=== PATIENT | female | born 1965 | race Caucasian/White ===

== ENCOUNTER → 2016-08-28 | Outpatient (CLI) | payer BC ==
[2016-08-28 08:19] LABS: EKG EKG PERFORMED
[2016-08-28 09:27] LABS: Basophils # (A) 0.1 k/uL (0-0.2); Basophils % (A) 1 %; CH 31.1; CHCM 33.1; Eosinophils # (A) 0.3 k/uL (0-0.7); Eosinophils % (A) 4 %; HCT 43.3 % (34.0-46.0); HDW 2.38; HGB 13.8 gm/dL (11.4-16.0); Luc # (Auto) 0.15; Luc % (Auto) 2; Lymphocytes # (A) 1.3 k/uL (1.0-4.8); Lymphocytes % (A) 21 %; MCHC 31.8 g/dL (31.0-37.0); MCV 94.2 fL (80.0-100.0); Mean Platelet Volume 7.2; Monocytes # (A) 0.4 k/uL (0-1.0); Monocytes % (A) 6 %; Neutrophils # (A) 4.1 k/uL (1.3-7.7); Neutrophils % (A) 66 %; RDW 12.6 % (11.5-15.5); WBC 6.2 k/uL (3.8-10.6); WBC (Perox) 6.35
[2016-08-28 09:54] LABS: Anion Gap 10 mmol/L; Carbon Dioxide 31 mmol/L (22-30); Chloride 100 mmol/L (98-107); Potassium 4.5 mmol/L (3.5-5.1); Sodium 141 mmol/L (137-145)
== END | disposition home or self-care (01) ==
LOC: LABPAT 08:09
PROVIDERS: ATTEND Orthopaedic Surgery
DX: Z01.810 Encounter for preprocedural cardiovascular examination (principal); Z01.812 Encounter for preprocedural laboratory examination
CPT/HCPCS: 80051; 85025; 93005

== ENCOUNTER 2016-09-05 06:08 | Day surgery (SDC) | payer BC ==
[2016-09-03 15:03] VITALS: BMI 22.8
--- NOTE | 2016-09-04 18:49 | HP ---
DATE OF ADMISSION: 09/05/2016 April Wilson is a 51-year-old patient seen with progressive right shoulder pain. After having treatment options discussed, she elected to proceed with right shoulder arthroscopy. Consent was obtained. Her past medical history is noncontributory. Past surgical history is hysterectomy, laparoscopy. Daily medications: Baclofen, Mobic. ALLERGIES: NONE. Social history is noncontributory. She denies current tobacco use. PHYSICAL EVALUATION OF THE RIGHT SHOULDER: Flexion is 90 degrees, abduction 70 degrees. External rotation is 15 degrees with some pain and weakness. There is tenderness along the anterolateral acromion and rotator cuff insertion. Impingement is positive at 70 degrees. Distal neurovascular exam is intact. Right shoulder radiographs revealed a type II anterior acromion, evidence for acromioclavicular joint osteoarthritis and cystic changes of the tuberosity. An MRI of the right shoulder revealed a partial rotator cuff tear. IMPRESSION: Right shoulder impingement with rotator cuff tear. PLAN: Right shoulder arthroscopy with subacromial decompression, probable arthroscopic rotator cuff repair and debridement.
[~2016-09-05 06:08] MED LIST: DEXAMETHASONE SOD PHOSPHATE 10 MG/ML 1 ML VIAL IV ONE; HYDROmorphone 1 MG/ML 1 ML SYRINGE IVP PRN; MIDAZOLAM 2 MG/2 ML VIAL IV PRN; ONDANSETRON 4 MG/2 ML VIAL IVP ONE; ceFAZolin 1,000 MG in DEXTROSE/WATER 1 50ML.BAG IV ONE
[2016-09-05 06:58] VITALS: RESP 16
[2016-09-05] MEDS: LACTATED RINGERS 1,000 ML IV SCH ×2 (07:04→10:34)
[2016-09-05] MEDS ORDERED: LIDOCAINE 2%-EPI 1:100,000 20 ML VIAL ONE (08:04)
[2016-09-05] MEDS ORDERED: MIDAZOLAM 2 MG/2 ML VIAL ONE (08:04)
[2016-09-05] MEDS ORDERED: LIDOCAINE 1% INJ 10MG/ML (20 ML MDV) ONE (08:04)
[2016-09-05] MEDS ORDERED: fentaNYL (PF) 50 MCG/ML 2 ML AMP ONE (08:04)
[2016-09-05] MEDS ORDERED: ROPIVACAINE 5 MG/ML 30 ML VIAL ONE (08:04)
[2016-09-05] MEDS ORDERED: PROPOFOL 10 MG/ML 20 ML VIAL IV ONE (08:04)
[2016-09-05 09:57] VITALS: TEMP 97
--- NOTE | 2016-09-05 09:57 | P.OP ---
Date of Procedure: 09/05/16 Preoperative Diagnosis: Right shoulder impingement Postoperative Diagnosis: 1. Right shoulder rotator cuff tear 2. Right shoulder impingement 3. 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 Right shoulder partial long head biceps tendon tear 6. Right shoulder arthroscopic debridement labral tear Procedure(s) Performed: 1. Right shoulder arthroscopic rotator cuff repair 2. Right shoulder arthroscopic subacromial decompression 3. Right shoulder arthroscopic chondroplasty humeral head and glenoid fossa 4. Right shoulder arthroscopic biceps tenotomy 5. Right shoulder arthroscopic debridement labral tear Implants: 4-valeris peek anchors Anesthesia: GETA, regional (Interscalene block) Surgeon: Varghese Rodriguez Sleep Technologist #1: Nahum Jones Estimated Blood Loss (ml): 10 Pathology: none sent Condition: stable Disposition: PACU Indications for Procedure: 51-year-old patient seen with progressive right shoulder pain. After having treatment options discussed, she elected to proceed with right shoulder arthroscopy. Operative Findings: see description of procedure Description of Procedure: Patient underwent a shoulder block by department of anesthesia. The patient was then taken to the operative suite. The patient underwent a general anesthetic by the department of anesthesia. The patient was placed into a lateral position and secured. There was appropriate padding of the bony prominence. Right shoulder was then prepped and draped in normal sterile orthopedic fashion. We placed the extremity in 10 pounds of longitudinal traction. A posterior incision was now made for a posterior working portal site. The trocar and cannula were inserted into the glenohumeral joint. Arthroscopy was initiated. Spinal needle was now inserted anteriorly, to ascertain the anterior working portal site. An incision was now made in that area, a trocar was inserted followed by a probe. There were grade 3 chondral malacia changes of the humeral head with large osteochondral tears present. There were grade 2-3 chondromalacia changes of the glenoid fossa with osteochondral tears present. There was superficial tearing of the superior and anterior labrum. There was partial tearing long head biceps tendon with hyperemia. No loose bodies were identified. The posterior and inferior labrum were stable. I performed an arthroscopic biceps tenotomy. I debrided the labral tear down to stable tissue. I performed a chondroplasty of the humeral head and glenoid fossa getting down to stable osteochondral tissue. The residual osteochondral tissue was probed and found to be stable. We again had a fairly large area of grade 3 chondromalacia of the humeral head and a fairly large area of grade 2-3 chondral malacia changes of the glenoid. Instruments were now removed from glenohumeral joint. Utilizing the posterior working portal site, the trocar and cannula were inserted into the subacromial space. Arthroscopy initiated. I made an incision 2 fingerbreadths lateral to the acromion. I introduced my trocar followed by my ArthroCare ablator. I now began ablating thick subacromial bursal tissue, which exposed the undersurface of the anterior acromion. This was diminished subacromial space. There was a very prominent anterior acromion. A motorized bur was introduced and a subacromial decompression was performed. I also excised some osteophytes off the inferior aspect of the distal clavicle. The AC joint was visualized and noted to be mildly arthritic. I did not think enough toward a Kim procedure. I turned my attention to the rotator cuff. There was about a 2 cm large area of partial tearing posterior aspects supraspinatus tendon. After probing this were obvious perforation through the tendon. I debrided that and noted complete perforation and therefore debrided the area getting down to stable tendon tissue. We now had a defect of about 2 cm but freely mobile over the footprint. The peripheral tissue although thin was stable. I abraded the footprint with a motorized bur. I created an foot setter portal site off the lateral acromion. I introduced 2 medial row anchors with appropriate sutures. I passed all 8 limbs of suture through good bites of rotator cuff tendon. I crisscrossed the sutures and introduced 2 lateral anchors compressing the tendon along the footprint very nicely. The repair was probed and found to be stable. The residual suture limbs were clipped. I injected 1 mL of Allogen into the intra-articular glenohumeral joint area. Instruments now removed from the portal sites. All portal sites were approximated with nylon sutures. Sterile dressings were applied followed by a shoulder immobilizer. Ottoniel AGUIAR assisted with the procedure. The patient was awakened, transferred to a bed, and taken to recovery in stable condition.
[2016-09-05 11:14] VITALS: BP 112/66; PULSE 58
== END 2016-09-05 11:59 | disposition home or self-care (01) ==
LOC: OR 06:08
PROVIDERS: ATTEND Orthopaedic Surgery
DX: M75.101 Unspecified rotator cuff tear or rupture of right shoulder, not specified as traumatic (principal); M75.41 Impingement syndrome of right shoulder; M94.211 Chondromalacia, right shoulder; S46.111A Strain of muscle, fascia and tendon of long head of biceps, right arm, initial encounter; X58.XXXA Exposure to other specified factors, initial encounter; S43.401A Unspecified sprain of right shoulder joint, initial encounter; Z87.891 Personal history of nicotine dependence; Z79.899 Other long term (current) drug therapy
CPT/HCPCS: 64415; 29826; 29827; C1713 ×2; C1765; J2250; J1100; J2405; J2001; J3010; J0690; J2795; J2704

== ENCOUNTER 2017-02-18 07:40 | Day surgery (SDC) | payer BC ==
[2017-02-12 10:39] VITALS: BMI 23.1
--- NOTE | 2017-02-17 14:53 | HP ---
Surgery is scheduled for 02/18/2017. April Wilson is a 51-year-old patient see with right shoulder adhesions after having undergone arthroscopy. We discussed options. She elected to proceed with manipulation under anesthesia, right shoulder with steroid injection. Consent was obtained. PAST MEDICAL HISTORY: Osteoarthritis. PAST SURGICAL HISTORY: Hysterectomy, laparoscopy, ileostomy, shoulder arthroscopy. DAILY MEDICATIONS: Baclofen, MiraLAX, Mobic. ALLERGIES: None. SOCIAL HISTORY: Patient denies current tobacco use. PHYSICAL EVALUATION OF THE RIGHT SHOULDER: Her previous arthroscopic portal sites are well healed. There are no hyperemia, erythema or evidence for infective process. Flexion 95 degrees, abduction 90 degrees, external rotation is 25 degrees with some weakness. Distal neurovascular exam is intact. Radiographs of the right shoulder revealed a stable conversion to a flat anterior acromion. IMPRESSION: 1. Right shoulder adhesive capsulitis. 2. History of right shoulder arthroscopy. PLAN: Manipulation under anesthesia, right shoulder with steroid injection. CHAITANYA
[~2017-02-18 07:40] MED LIST changes: +LACTATED RINGERS 1,000 ML IV SCH; -MIDAZOLAM 2 MG/2 ML VIAL IV PRN; -ceFAZolin 1,000 MG in DEXTROSE/WATER 1 50ML.BAG IV ONE; +ceFAZolin 2 GM in SODIUM CHLORIDE 0.9% 100 ML IVPB ONE
[2017-02-18] MEDS ORDERED: LIDOCAINE 1% 20 ML VIAL (10MG/ML) FOR IV START INTRADERMA ONE (08:00)
[2017-02-18] MEDS ORDERED: MIDAZOLAM 2 MG/2 ML VIAL IVP ONE (09:20)
[2017-02-18] MEDS ORDERED: KETOROLAC 30 MG/ML 1 ML VIAL ONE (09:26)
[2017-02-18] MEDS ORDERED: MIDAZOLAM 2 MG/2 ML VIAL ONE (09:26)
[2017-02-18] MEDS ORDERED: fentaNYL (PF) 50 MCG/ML 2 ML AMP ONE (09:26)
[2017-02-18] MEDS ORDERED: PROPOFOL 10 MG/ML 20 ML VIAL IV ONE (09:26)
[2017-02-18] MEDS ORDERED: LACTATED RINGERS 1,000 ML IV ONE (09:43)
--- NOTE | 2017-02-18 09:46 | P.OP ---
Date of Procedure: 02/18/17 Preoperative Diagnosis: Right shoulder adhesive capsulitis Postoperative Diagnosis: Right shoulder adhesive capsulitis Procedure(s) Performed: Manipulation under anesthesia right shoulder with steroid injection Implants: Anesthesia: MAC Surgeon: Varghese Rodriguez Estimated Blood Loss (ml): 0 Pathology: none sent Condition: stable Disposition: PACU Indications for Procedure: 51-year-old patient seen with persistent right shoulder adhesive capsulitis with history of shoulder arthroscopy. After we discussed treatment options she elected to proceed with manipulation under anesthesia right shoulder with steroid injection. Operative Findings: see description of procedure Description of Procedure: Patient was taken to a monitored area and underwent anesthesia by the department of anesthesia. When sufficient anesthesia was noted I performed a manipulation right shoulder achieving 150 of flexion and 140 of abduction. I was able to get about 30 of external rotation. I felt that this was as much as I was able to achieve. I injected a solution of Depo-Medrol and quarter percent plain Marcaine intra-articular under sterile technique. The patient was awakened having entire procedure well. Patient will proceed with physical therapy on an outpatient basis as previously instructed.
[2017-02-18 09:55] VITALS: TEMP 98
[2017-02-18] MEDS ORDERED: HYDROmorphone 1 MG/ML 1 ML SYRINGE IVP ONE ×2 (10:05→10:10)
[2017-02-18 10:57] VITALS: RESP 16
[2017-02-18 11:47] VITALS: BP 116/73; PULSE 55
== END 2017-02-18 12:11 | disposition home or self-care (01) ==
LOC: OR 07:40
PROVIDERS: ATTEND Orthopaedic Surgery
DX: M75.01 Adhesive capsulitis of right shoulder (principal); M19.90 Unspecified osteoarthritis, unspecified site; Z79.1 Long term (current) use of non-steroidal anti-inflammatories (NSAID); Z79.899 Other long term (current) drug therapy
CPT/HCPCS: 20610; 23700; J2250; J1100; J2405; J3010; J1885; J1170; J2704

== ENCOUNTER 2018-08-10 21:07 | Emergency (ER) | payer BC ==
[2018-08-10 21:15] VITALS: TEMP 97.9
[2018-08-10] MEDS ORDERED: PROPARACAINE 0.5% OPHTH DROPS 15 ML BTL RIGHT EYE STA (21:21)
--- NOTE | 2018-08-10 21:26 | ED ---
General Adult HPI - General Chief complaint: Eye Problems Stated complaint: FB eye Time Seen by Provider: 08/10/18 21:17 Source: patient, RN notes reviewed, old records reviewed Mode of arrival: ambulatory Limitations: no limitations - History of Present Illness Initial comments: 53-year-old female patient with pertinent past history presents to ED with foreign body sensation in right eye. Patient states that she was sitting watching TV, she felt as if something is in her eye. Patient still has that feeling. Patient states that she was sitting incontinence occurred, denies anything could have fallen in eye. Patient States Her Vision Is at Baseline. Patient Denies Any Other Complaints. Systemic: Pt denies fatigue, myalgia, fever/chills, rash. Pt denies weakness, night sweats, weight loss. Neuro: Pt denies headache, visual disturbances, syncope or pre-syncope. HEENT: Pt denies otalgia, rhinorrhea, pharyngitis or notable lymphadenopathy. Cardiopulmonary: Pt denies chest pain, SOB, heart palpitations, dyspnea on exertion. Abdominal/GI: Pt denies abdominal pain, n/v/d. : Pt denies dysuria, burning w/ urination, frequency/urgency. Denies new onset urinary or bowel incontinence. MSK: Pt denies myalgia, loss of strength or function in extremities. Neuro: Pt denies new onset weakness, paresthesias. - Related Data Home Medications Medication Instructions Recorded Confirmed Loratadine-Pseudoeph 5-120 mg 1 each PO Q12HR PRN 09/03/16 02/18/17 [Claritin-D 12 HR] Ibuprofen [Motrin] 600 mg PO HS PRN 02/12/17 02/18/17 Melatonin 5 mg PO HS 02/12/17 02/18/17 Polyethylene Glycol 3350 [Miralax] 17 gm PO DAILY 02/12/17 02/18/17 Previous Rx's Medication Instructions Recorded HYDROcodone/APAP 7.5-325MG [[place]ad[place] 1 - 2 each PO Q6HR PRN #40 tab 02/18/17 7.5-325] Erythromycin Ophth Oint [Romycin 1 applic RIGHT EYE QID 5 Days #1 08/10/18 Ophth Oint] tube Allergies Allergy/AdvReac Type Severity Reaction Status Date / Time No Known Allergies Allergy Verified 02/12/17 10:29 Review of Systems ROS Statement: Those systems with pertinent positive or pertinent negative responses have been documented in the HPI. ROS Other: All systems not noted in ROS Statement are negative. Past Medical History Past Medical History: Osteoarthritis (OA) Additional Past Medical History / Comment(s): Cyst on thyroid. History of Any Multi-Drug Resistant Organisms: None Reported Past Surgical History: Bladder Surgery, Bowel Resection, Hysterectomy, Orthopedic Surgery Additional Past Surgical History / Comment(s): Prolapsed rectum with bowel resection, bladder suspension, pelvic suspension, iliostomy with reversal, surgeon knicked bowel, also had an infection from knicking bowel. Right rotator cuff surgery. Past Anesthesia/Blood Transfusion Reactions: No Reported Reaction Additional Past Anesthesia/Blood Transfusion Reaction / Comment(s): Pt. states is very nervous to have surgery because of all the complications that have occured with her other surgeries. Past Psychological History: No Psychological Hx Reported Smoking Status: Former smoker Past Alcohol Use History: Occasional Past Drug Use History: None Reported - Past Family History Mother Family Medical History: Cancer, Deep Vein Thrombosis (DVT) Father Family Medical History: Cancer Additional Family Medical History / Comment(s): Lung General Exam - General Exam Comments Initial Comments: Constitutional: NAD, AOX3, Pt has pleasant affect. HEENT: NC/AT, trachea midline, neck supple, no lymphadenopathy. Posterior pharynx non erythematous, without exudates. External ears appear normal, without discharge. Mucous membranes moist. Eyes PERRLA, EOM intact. No injection. Further sustain revealed small corneal abrasion approximately 9:00. No foreign body noted. Patient visual acuity 20/20 bilaterally. There is no scleral icterus. No pallor noted. Cardiopulmonary: RRR, no murmurs, rubs or gallops, no JVD noted. Lungs CTAB in anterior and posterior elder. No peripheral edema. Abdominal exam: Abdomen soft and non-distended. Abdomen non-tender to palpation in all 4 quadrants. Bowel sounds active in LLQ. No hepatosplenomegaly. No ecchymosis Neuro: CN II-XII grossly intact. No nuchal rigidity. MSK: No posterior calf tenderness bilaterally, homans sign negative bilaterally. Posterior tibialis and radial pulse +2 bilaterally. Sensation intact in upper and lower extremities. Full active ROM in upper and lower extremities, 5/5 stregnth. Limitations: no limitations Course Vital Signs 08/10/18 21:11 Temperature 97.9 F Pulse Rate 67 Respiratory 20 Rate Blood Pressure 169/82 O2 Sat by Pulse 99 Oximetry Medical Decision Making - Medical Decision Making 53-year-old female patient with pertinent past history presents to ED with foreign body sensation in right eye. Patient states that she was sitting watching TV, she felt as if something is in her eye. Patient states that she was sitting on couch when incident occurred, denies anything could have fallen in eye. Patient States Her Vision Is at Baseline. Pt VSS. Physical exam displayed: Further sustain revealed small corneal abrasion approximately 9:00. Patient visual acuity 20/20 bilaterally. No foreign body noted. There is no scleral icterus. No pallor noted. Patient diagnosis corneal abrasion, films explained at length with patient. Patient verbalizes understanding. Patient prescribed erythromycin eyedrops. Patient not contact lens user. He to follow primary care provider tomorrow, patient referred to ophthalmology if symptoms continue tomorrow. Patient to return to ED if new signs symptoms develop or if condition worsens in any way. Case discussed in depth with Dr. Nuñez. Disposition Clinical Impression: Corneal abrasion Disposition: HOME SELF-CARE Condition: Stable Instructions (If sedation given, give patient instructions): Corneal Abrasion ( ED) Additional Instructions: Patient to adhere to previously discussed treatment plan and will take medication(s) as directed. Patient to follow up with PCP in 1-2 days. Patient to return to ED if symptoms do not improve. Prescriptions: Erythromycin Ophth Oint [Romycin Ophth Oint] 1 applic RIGHT EYE QID 5 Days #1 tube Is patient prescribed a controlled substance at d/c from ED?: No Referrals: Umer Wilson MD [Primary Care Provider] - 1-[address] MD [STAFF PHYSICIAN] - 1-2 days
[2018-08-10 22:22] VITALS: BP 141/85; PULSE 82; RESP 16
== END 2018-08-10 21:45 | disposition home or self-care (01) ==
LOC: EC 21:07
DX: S05.01XA Injury of conjunctiva and corneal abrasion without foreign body, right eye, initial encounter (principal); Z87.891 Personal history of nicotine dependence; Z79.899 Other long term (current) drug therapy; X58.XXXA Exposure to other specified factors, initial encounter; Y93.89 Activity, other specified
CPT/HCPCS: 99283